=== PATIENT | male | born 1950 | race Caucasian/White ===

== ENCOUNTER 2019-07-28 13:41 | Inpatient (IN) | payer MEDICARE, OTHER ==
[~2019-07-28] VITALS: Ht 190.5 cm; Wt 113.1 kg
[~2019-07-28 13:41] MED LIST: ACYCLOVIR400 MG ORAL; ALPRAZOLAM1 MG PO; AMBIEN10 MG ORAL; AMLODIPINE BESYL5 MG ORAL; ATRIPLA TABLET1 EAC1 ORAL; BUPROPION HCL100 MG PO; CARVEDILOL25 MG PO; ENALAPRIL MALEA20 MG PO; FLOMAX0.4 MG ORAL; FUROSEMIDE40 MG ORAL; GABAPENTIN600 MG PO; HYDROCHLOROTHIA25 MG PO; IMODIUM2 MG ORAL; MARINOL5 MG ORAL; OMEPRAZOLE40 M1 PO; PAMELOR25 MG ORAL; VICODIN HP 10-1 EACH PO
[2019-07-28 13:45] VITALS: BP 132/78
--- NOTE | 2019-07-28 13:50 | NUR ---
ED Nurse Note: pt presents to ED via EMS arrival from his urgent care clinic. pt reports that he felt dizzy abouit 4 hours ago and had a syncopal episode. it was unwitnessed but he did hit his head against a window and has 2 lacs to his R ear. one is about 2.5 cm on the lober and the other is 4 cm long. pt reports a 7/10 px. he went to urgent care for lac repair but they saw a new onset of A.fib and called EMS to take him to the ED. per EMS they also saw A.fib for him. pt has h/o HTN and CA twice, he has had a partial R nephrectomy. pt reports he occasionally feels this way with his BP meds but has never been dizzy enough to fall before. pt has no other complaints at this time, VSS in no distress
--- NOTE | 2019-07-28 14:19 | NUR ---
ED Nurse Note: XRAY AT THE BEDSIDE
--- NOTE | 2019-07-28 14:35 | NUR ---
ED Nurse Note: pt has returned from CT, Dr. Chapman sent pictures of pt's ear to ENT specialist who plans to be in to see pt in about 1.5 hours
[2019-07-28] MEDS ORDERED: VENLAFAXINE HCL25 MG ORAL (14:44)
[2019-07-28] MEDS ORDERED: CRESTOR10 M2 ORAL (14:44)
[2019-07-28] MEDS ORDERED: AMLODIPINE BESY10 MG ORAL (14:44)
[2019-07-28] MEDS ORDERED: ENALAPRIL MALEA20 MG ORAL (14:44)
[2019-07-28] MEDS ORDERED: OMEPRAZOLE40 M1 ORAL (14:44)
[2019-07-28] MEDS ORDERED: FUROSEMIDE80 M1 ORAL (14:44)
[2019-07-28] MEDS ORDERED: ABILIFY5 MG ORAL (14:44)
[2019-07-28] MEDS ORDERED: TRUVADA1 TAB ORAL (14:44)
[2019-07-28 14:55] LABS: BASOPHILS % (AUTO) 0.6 % (0.0-2.0); EOSINOPHILS % (AUTO) 1.1 % (0.0-3.0); HEMATOCRIT 42.8 % (42.0-52.0); HEMOGLOBIN 14.5 G/DL (14.2-18.0); LYMPHOCYTES % (AUTO) 16.3 % (20.0-45.0); MEAN CORPUSCULAR VOLUME 87 FL (80-99); MONOCYTES % (AUTO) 6.2 % (1.0-10.0); NEUTROPHILS % (AUTO) 75.8 % (45.0-75.0); PLATELET COUNT 223 K/UL (150-450); RED BLOOD COUNT 4.92 M/UL (4.70-6.10); RED CELL DISTRIBUTION WIDTH 12.1 % (11.6-14.8); WHITE BLOOD COUNT 9.3 K/UL (4.8-10.8)
[2019-07-28 15:09] LABS: ANION GAP 12 mmol/L (5-15); BLOOD UREA NITROGEN 24 mg/dL (7-18); CALCIUM 8.9 MG/DL (8.5-10.1); CARBON DIOXIDE 26 MMOL/L (21-32); CHLORIDE 107 MMOL/L (98-107); POTASSIUM 3.4 MMOL/L (3.5-5.1); SODIUM 145 MMOL/L (136-145)
--- NOTE | 2019-07-28 15:09 | Emergency Room Report ---
History of Present Illness General Chief Complaint: Syncope Source: Patient, Medical Record Present Illness HPI 68-year-old male presents ED for evaluation. Patient states he had a syncopal episode this morning where he fell and hit his head. Laceration to the right ear. Patient drove to an urgent care where they did an EKG and saw that he was in A. fib. Brought to the ED for evaluation. Tetanus is up-to-date. Denies any pain. Denies any photophobia or blurry vision. Denies any nausea or vomiting. Denies chest pain. Does not take blood thinners. No other aggravating relieving factors. Denies any other associated symptoms Allergies: Coded Allergies: No Known Allergies (Unverified , 01/16/13) Patient History Past Medical History: HTN, pneumonia, HIV Pertinent Family History: none Social History: Denies: smoking, alcohol use, drug use Immunizations: UTD Reviewed Nursing Documentation: PMH: Agreed; PSxH: Agreed Nursing Documentation-PMH Past Medical History: No History, Except For Hx Hypertension: Yes - HIV positive History Of Psychiatric Problem: Yes - Depression Review of Systems All Other Systems: negative except mentioned in HPI Physical Exam Vital Signs Date Time Temp Pulse Resp B/P (MAP) Pulse Ox O2 Delivery O2 Flow Rate FiO2 07/28/19 13:41 98.1 72 16 132/78 (96) 99 Room Air Sp02 EP Interpretation: reviewed, normal General Appearance: no apparent distress, alert, GCS 15, non-toxic Head: normocephalic ENT: hearing grossly normal, normal pharynx, no angioedema, normal voice, other - R ear laceration Neck: normal inspection, supple, no bony tend Respiratory: normal inspection Cardiovascular #1: normal inspection Gastrointestinal: normal inspection Rectal: deferred Genitourinary: no CVA tenderness Musculoskeletal: normal inspection Neurologic: alert, oriented x3, responsive, motor strength/tone normal, sensory intact, speech normal Psychiatric: normal inspection Skin: laceration - 2cm laceration to R ear lobe, also to tragus Lymphatic: normal inspection Medical Decision Making Diagnostic Impression: Primary Impression: Syncope Qualified Codes: R55 - Syncope and collapse Additional Impressions: Head injury Qualified Codes: S09.90XA - Unspecified injury of head, initial encounter Laceration of ear Qualified Codes: S01.311A - Laceration without foreign body of right ear, initial encounter Atrial fibrillation Qualified Codes: I48.91 - Unspecified atrial fibrillation Renal insufficiency ER Course Hospital Course 68 yo M presents to ED s/p syncope. head injury. ear laceration. Differential diagnoses include: ID/unstable angina, arrythmia, dehydration, CVA/ TIA Clinical course Patient placed on stretcher. 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 After initial history and physical I ordered labs, EKG, chest x-ray, IVFs, CT Brain labs reviewed- no leukocytosis, hemoglobin/hematocrit ok, BUN/Cr elevated, trop negative EKG- afib, no acute ischemic changes interpreted by me Chest x-ray- no acute process CT brain-unremarkable given IVFS. laceration repaired by Dr Lee Locke (ENT) Case discussed with Dr. Borrego and he agreed to accept the patient to his service for further care and support I. I feel this is a highly complex case requiring extensive working including EKG/Rhythm strip, Xray/CT/US, Blood/urine lab work, repeat exams while in ED, and administration of strong opiates/narcotics for pain control, admission to hospital or close patient follow up. Diagnosis - syncope, head injury, laceration of ear, atrial fibrillation, renal insufficiency admitted to telemetry in serious condition Labs Test 07/28/19 14:00 07/28/19 15:04 White Blood Count 9.3 K/UL (4.8-10.8) Red Blood Count 4.92 M/UL (4.70-6.10) Hemoglobin 14.5 G/DL (14.2-18.0) Hematocrit 42.8 % (42.0-52.0) Mean Corpuscular Volume 87 FL (80-99) Mean Corpuscular Hemoglobin 29.5 PG (27.0-31.0) Mean Corpuscular Hemoglobin Concent 34.0 G/DL (32.0-36.0) Red Cell Distribution Width 12.1 % (11.6-14.8) Platelet Count 223 K/UL (150-450) Mean Platelet Volume 6.6 FL (6.5-10.1) Neutrophils (%) (Auto) 75.8 % (45.0-75.0) Lymphocytes (%) (Auto) 16.3 % (20.0-45.0) Monocytes (%) (Auto) 6.2 % (1.0-10.0) Eosinophils (%) (Auto) 1.1 % (0.0-3.0) Basophils (%) (Auto) 0.6 % (0.0-2.0) Sodium Level 145 MMOL/L (136-145) Potassium Level 3.4 MMOL/L (3.5-5.1) Chloride Level 107 MMOL/L (98-107) Carbon Dioxide Level 26 MMOL/L (21-32) Anion Gap 12 mmol/L (5-15) Blood Urea Nitrogen 24 mg/dL (7-18) Creatinine 2.0 MG/DL (0.55-1.30) Estimat Glomerular Filtration Rate 33.4 mL/min (>60) Glucose Level 102 MG/DL (74-106) Calcium Level 8.9 MG/DL (8.5-10.1) Total Bilirubin 0.5 MG/DL (0.2-1.0) Aspartate Amino Transf (AST/SGOT) 23 U/L (15-37) Alanine Aminotransferase (ALT/SGPT) 58 U/L (12-78) Alkaline Phosphatase 101 U/L (46-116) Total Creatine Kinase 122 U/L (26-308) Creatine Kinase MB 1.0 NG/ML (0.0-3.6) Creatine Kinase MB Relative Index 0.8 Troponin I 0.000 ng/mL (0.000-0.056) Pro-B-Type Natriuretic Peptide 829 pg/mL (0-125) Total Protein 7.3 G/DL (6.4-8.2) Albumin 3.6 G/DL (3.4-5.0) Globulin 3.7 g/dL Albumin/Globulin Ratio 1.0 (1.0-2.7) Urine Color Pale yellow Urine Appearance Clear Urine pH 7 (4.5-8.0) Urine Specific [place] 1.010 (1.005-1.035) Urine Protein Negative (NEGATIVE) Urine Glucose (UA) Negative (NEGATIVE) Urine Ketones Negative (NEGATIVE) Urine Blood Negative (NEGATIVE) Urine Nitrite Negative (NEGATIVE) Urine Bilirubin Negative (NEGATIVE) Urine Urobilinogen Normal MG/DL (0.0-1.0) Urine Leukocyte Esterase Negative (NEGATIVE) EKG Diagnostic Results Rate: normal Rhythm: other - atrial fibrillation ST Segments: no acute changes ASA given to the pt in ED: No Rhythm Strip Diag. Results EP Interpretation: yes Rhythm: NSR, no PVC's, no ectopy Chest X-Ray Diagnostic Results Chest X-Ray Diagnostic Results : Chest X-Ray Ordered: Yes # of Views/Limited/Complete: 1 View Indication: Other - syncope EP Interpretation: Yes Interpretation: no consolidation, no effusion, no pneumothorax, no acute cardiopulmonary disease Impression: No acute disease Electronically Signed by: Electronically signed by Bjorn Benitez MD CT/MRI/US Diagnostic Results CT/MRI/US Diagnostic Results : Imaging Test Ordered: CT head Impression no acute process Last Vital Signs Date Time Temp Pulse Resp B/P (MAP) Pulse Ox O2 Delivery O2 Flow Rate FiO2 07/28/19 13:45 98.1 16 132/78 99 Room Air 07/28/19 13:41 72 Status: improved Disposition: ADMITTED INPATIENT Condition: Serious Bjorn Benitez MD Jul 28, 2019 15:09
[2019-07-28] MEDS: Lidocaine 1% 10mg/ml/EPI 0.01mg/ml 20ml INJ ONE ×2 (15:13→15:22)
[2019-07-28 15:16] LABS: APPEARANCE,URINE CLEAR; BILIRUBIN, URINE NEGATIVE (NEGATIVE); COLOR,URINE PALE YELLOW; GLUCOSE, URINE (UA) NEGATIVE (NEGATIVE); KETONES,URINE NEGATIVE (NEGATIVE); LEUKOCYTE ESTERASE ,URINE NEGATIVE (NEGATIVE); NITRITE,URINE NEGATIVE (NEGATIVE); PH,URINE 7 (4.5-8.0); PROTEIN,URINE NEGATIVE (NEGATIVE); UROBILINOGEN,URINE NORMAL MG/DL (0.0-1.0)
[2019-07-28 15:25] LABS: ALANINE AMINOTRANSFERASE 58 U/L (12-78); ALBUMIN 3.6 G/DL (3.4-5.0); ALKALINE PHOSPHATASE 101 U/L (46-116); ASPARTATE AMINO TRANSFERASE 23 U/L (15-37); BILIRUBIN,TOTAL 0.5 MG/DL (0.2-1.0); CREATINE KINASE 122 U/L (26-308)
[2019-07-28 15:36] VITALS: BP 126/89
--- NOTE | 2019-07-28 16:10 | NUR ---
ED Nurse Note: Dr. Locke performed laceration repair of R ear for patient. consent was signed,pt tolerated procedure well. in no acute distress and stable condition.
[2019-07-28] MEDS ORDERED: Bacitracin Oint UD TOPIC ONE ×2 (16:43→16:45)
[2019-07-28] MEDS ORDERED: Hydrogen Peroxide 473ml Bottle TOPIC ONE ×2 (16:43→16:45)
[2019-07-28] MEDS ORDERED: Ciprofloxacin 500mg tab ORAL ONE (17:15)
[2019-07-28] MEDS ORDERED: Cortisporin OTIC Susp 10ml RIGHT EAR ONE (17:15)
--- NOTE | 2019-07-28 17:43 | Consultation ---
History of Present Illness General Date patient seen: Jul 28, 2019 Time patient seen: 16:00 Chief Complaint: Syncope Referring physician: Elmo Present Illness HPI Patient is a 68 year old male who stated two days ago began feeling some fullness and hearing loss in his left ear. He got out of his bed today and states he fell heavy on the right and fell on his right side. He denies loss of consciousness. He denies room spinning or vertigo like symptoms. No preceding tinnitus, otorrhea, prior ear surgery or otalgia. He is noted to have a significant laceration to the right ear. Bleeding has stopped . Allergies: Coded Allergies: No Known Allergies (Unverified , 01/16/13) Medication History Scheduled Acyclovir* (Acyclovir*), 800 MG ORAL TID, (Reported) Alprazolam* (Xanax*), 1 MG PO TID, (Reported) Amlodipine Besylate* (Amlodipine Besylate*), 5 MG ORAL BID, (Reported) Amlodipine Besylate* (Amlodipine Besylate*), 10 MG ORAL DAILY, (Reported) Aripiprazole* (Abilify*), 5 MG ORAL DAILY, (Reported) Bupropion Hcl* (Bupropion Hcl*), 150 MG PO TID, (Reported) Carvedilol* (Carvedilol*), 25 MG PO Q12HR, (Reported) Dronabinol* (Marinol*), 10 MG ORAL TID, (Reported) Efavirenz/Emtricitab/Tenofovir (Atripla), 1 TAB ORAL DAILY, (Reported) Emtricitabine/Tenofovir (Truvada 200 mg-300 mg Tablet), 1 TAB ORAL DAILY, ( Reported) Enalapril Maleate* (Enalapril Maleate*), 20 MG PO Q12HR, (Reported) Enalapril Maleate* (Enalapril Maleate*), 20 MG ORAL EVERY 12 HOURS, (Reported) Furosemide* (Lasix*), 40 MG ORAL DAILY, (Reported) Furosemide* (Lasix*), 80 MG ORAL DAILY, (Reported) Gabapentin* (Gabapentin*), 1,200 MG PO HS, (Reported) Hydrochlorothiazide* (Hydrochlorothiazide*), 25 MG PO DAILY, (Reported) Hydrocodone/Acetaminophen 10-300 Mg Tablet (Vicodin Hp 10-300 Mg Tablet), 1 EACH PO BID, (Reported) Loperamide HCl (Loperamide), 2 MG ORAL TID, (Reported) Nortriptyline Hcl* (Pamelor*), 100 MG ORAL HS, (Reported) Omeprazole (Omeprazole), 40 MG PO BID, (Reported) Omeprazole (Omeprazole), 40 MG ORAL DAILY, (Reported) Rosuvastatin Calcium* (Crestor*), 5 MG ORAL DAILY, (Reported) Rosuvastatin Calcium* (Crestor*), 5 MG ORAL DAILY, (Reported) Tamsulosin HCl (Flomax), 0.4 MG ORAL DAILY, (Reported) Venlafaxine Hcl* (Effexor*), 150 MG ORAL DAILY, (Reported) Zolpidem Tartrate* (Ambien*), 20 MG ORAL BEDTIME, (Reported) Patient History History Provided By: Patient Healthcare decision maker Resuscitation status Advanced Directive on File Past Medical/Surgical History Past Medical/Surgical History: (1) Non-tobacco user (2) Current non-drinker of alcohol (3) H/O partial nephrectomy (4) Renal insufficiency (5) Atrial fibrillation (6) Laceration of ear (7) Head injury Review of Systems All Other Systems: negative except mentioned in HPI Physical Exam General Appearance: WD/WN, no apparent distress, alert Lines, tubes and drains: peripheral HEENT: normocephalic, PERRL, EOMI, pharynx normal, supple, other - right EAC with edema and discharge left EAC clear, TM intact. Right ear with through and through laceration of the lobe and a skin only laceration pretagally and in the cohncha cavum Respiratory/Chest: chest wall non-tender Cardiovascular/Chest: normal rate Last 24 Hour Vital Signs Date Time Temp Pulse Resp B/P (MAP) Pulse Ox O2 Delivery O2 Flow Rate FiO2 07/28/19 15:36 86 18 126/89 96 Room Air 07/28/19 13:45 98.1 16 132/78 99 Room Air 07/28/19 13:41 98.1 72 16 132/78 (96) 99 Room Air Laboratory Tests Test 07/28/19 14:00 07/28/19 15:04 White Blood Count 9.3 K/UL (4.8-10.8) Red Blood Count 4.92 M/UL (4.70-6.10) Hemoglobin 14.5 G/DL (14.2-18.0) Hematocrit 42.8 % (42.0-52.0) Mean Corpuscular Volume 87 FL (80-99) Mean Corpuscular Hemoglobin 29.5 PG (27.0-31.0) Mean Corpuscular Hemoglobin Concent 34.0 G/DL (32.0-36.0) Red Cell Distribution Width 12.1 % (11.6-14.8) Platelet Count 223 K/UL (150-450) Mean Platelet Volume 6.6 FL (6.5-10.1) Neutrophils (%) (Auto) 75.8 % (45.0-75.0) H Lymphocytes (%) (Auto) 16.3 % (20.0-45.0) L Monocytes (%) (Auto) 6.2 % (1.0-10.0) Eosinophils (%) (Auto) 1.1 % (0.0-3.0) Basophils (%) (Auto) 0.6 % (0.0-2.0) Sodium Level 145 MMOL/L (136-145) Potassium Level 3.4 MMOL/L (3.5-5.1) L Chloride Level 107 MMOL/L (98-107) Carbon Dioxide Level 26 MMOL/L (21-32) Anion Gap 12 mmol/L (5-15) Blood Urea Nitrogen 24 mg/dL (7-18) H Creatinine 2.0 MG/DL (0.55-1.30) H Estimat Glomerular Filtration Rate 33.4 mL/min (>60) Glucose Level 102 MG/DL (74-106) Calcium Level 8.9 MG/DL (8.5-10.1) Total Bilirubin 0.5 MG/DL (0.2-1.0) Aspartate Amino Transf (AST/SGOT) 23 U/L (15-37) Alanine Aminotransferase (ALT/SGPT) 58 U/L (12-78) Alkaline Phosphatase 101 U/L (46-116) Total Creatine Kinase 122 U/L (26-308) Creatine Kinase MB 1.0 NG/ML (0.0-3.6) Creatine Kinase MB Relative Index 0.8 Troponin I 0.000 ng/mL (0.000-0.056) Pro-B-Type Natriuretic Peptide 829 pg/mL (0-125) H Total Protein 7.3 G/DL (6.4-8.2) Albumin 3.6 G/DL (3.4-5.0) Globulin 3.7 g/dL Albumin/Globulin Ratio 1.0 (1.0-2.7) Urine Color Pale yellow Urine Appearance Clear Urine pH 7 (4.5-8.0) Urine Specific [place] 1.010 (1.005-1.035) Urine Protein Negative (NEGATIVE) Urine Glucose (UA) Negative (NEGATIVE) Urine Ketones Negative (NEGATIVE) Urine Blood Negative (NEGATIVE) Urine Nitrite Negative (NEGATIVE) Urine Bilirubin Negative (NEGATIVE) Urine Urobilinogen Normal MG/DL (0.0-1.0) Urine Leukocyte Esterase Negative (NEGATIVE) Height (Feet): 5 Height (Inches): 9.00 Weight (Pounds): 245 Assessment/Plan Problem List: (1) Otitis externa in other diseases classified elsewhere, right ear Assessment & Plan: OMG PROCEDURE NOTE Date: 07/28/2019: Surgeon: Lee Locke Preoperative diagnosis: complex laceration of the left ear Postoperative Diagnosis: same Anesthesia: local anesthesia EBL: <5cc Procedure: complex laceration repair to the right ear (5cm) Procedure in Detail: The right ear was first anesthesized ith 1% lidocaine with epinephrine. A total of 6cc was used. I then cleansed the wound with saline and chlorhexidine. Looking at the wound I noted a through and through laceration of the lobe and base of the samira. There was also a skin only laceration pretagally and in the samira cavum. I began by using a 5-0 vicryl to reapproximate the samira (inferior) portion that had been severed. A simple horizontal mattress suture was used. Next I noted macerated skin to the anterior portion of the lobe. I used fine scissors to excise skin and create a small flap with elevation and a backcut. This allowed me to rorate the anterior skin posteriorly for good closure. Next I used a running locking suture on the pretragl and conchal bowl lacerations. These measured 5cm in total. Then I placed deep sutures using a 5-0 vicryl to bring the lobule together. A running locking suture was then placed. This laceration measured 4cm in total. Finally the posterior lobule was closed iwth a running locking 6-0 prolene horizontal mattress suture. There was a small laceration posteriorly that was very superficial so I placed dermal glue over this. The ear was cleaned with peroxide and bacitracin was applied. Patient toelrated the procedure well. Prescribe ciprodex, dry ear precautions, bacitracin opintment, cipro 500mg PO BID for 7 days, and pain control. He should follow up with me on Friday for suture removal. ICD Codes: H62.41 - Otitis externa in other diseases classified elsewhere, right ear SNOMED: [id number] Status: doing well Darren Locke MD Jul 28, 2019 17:43
--- NOTE | 2019-07-28 17:43 | NUR ---
ED Nurse Note: report given to to JOSE Escobar
[2019-07-28 20:00] VITALS: BP 128/79
--- NOTE | 2019-07-28 20:00 | NUR ---
NURSE NOTES: received pt, a/o, day rn, reviewed med rec and already called the pmd and received orders, right ear sutures in place, c/o pain in ear , will give morphine once verified by pharmacy.
--- NOTE | 2019-07-28 20:18 | Diagnostic Imaging Report ---
CT HEAD WITHOUT CONTRAST INDICATION: Syncope Technique: Continuous helical CT scanning of the head was performed without intravenous contrast material. Axial and coronal 5 mm sections were generated. Radiation dose was minimized using automated exposure control DOSE: Total Dose Length Product - DLP 1394.[address] Dose Index - CTDIvol(s) 62.7 mGy. COMPARISON: FINDINGS: There is no acute intracranial hemorrhage, mass effect or cortical edema. There are patchy subcortical and periventricular white matter hypodensities likely related to chronic ischemic microvascular disease. The ventricles, cisterns and sulci are normal for age. Visualized mastoid air cells and paranasal sinuses are unremarkable. No focal lesions of the bony calvarium or soft tissues of the scalp are seen. IMPRESSION: No evidence of acute intracranial hemorrhage, mass effect or cortical edema. MRI may be obtained for more sensitive evaluation as clinically indicated. The CT scanner at [facility] [place] is accredited by the [employer] and the scans are performed using protocols designed to limit radiation exposure to as low as reasonably achievable to attain images of sufficient resolution adequate for diagnostic evaluation.
--- NOTE | 2019-07-28 20:18 | Diagnostic Imaging Report ---
Indication: Shortness of breath Technique: Single AP view of the chest. Comparison: None. Findings: The cardiomediastinal silhouette is within normal limits. There is no focal consolidation, pneumothorax or pleural effusion. Osseous structures demonstrate no acute abnormality. IMPRESSION: No radiographic evidence of acute cardiopulmonary process.
--- NOTE | 2019-07-28 20:45 | NUR ---
HAND-OFF: Report given to Alexis/RN. Endorsed to nurse to contact Dr. Liu and Michael for further orders.
[2019-07-28] MEDS: Morphine Sulfate 2mg/ml Inj(IV/IM USE ONLY) IVP PRN (20:49)
[2019-07-28] MEDS: D5 1/2NS 1,000 ML IV SCH (20:50)
[2019-07-28] MEDS: Furosemide 80mg tab ORAL SCH (21:00)
[2019-07-28] MEDS: Carvedilol 25mg Tab ORAL SCH (21:00)
--- NOTE | 2019-07-28 23:00 | NUR ---
NURSE NOTES: message left for dr ayala re consult re afib
[2019-07-29] MEDS: Morphine Sulfate 2mg/ml Inj(IV/IM USE ONLY) IVP PRN ×4 (01:03→15:16)
[2019-07-29] MEDS ORDERED: TIVICAY50 MG ORAL (01:46)
[2019-07-29] MEDS ORDERED: descovy ORAL (02:14)
--- NOTE | 2019-07-29 06:45 | NUR ---
NURSE NOTES:dr ayala called back, aware of consult. Dr Liu service called, awaiting response.
--- NOTE | 2019-07-29 07:23 | NUR ---
HAND-OFF: Report given to Kyle Parnell.
--- NOTE | 2019-07-29 07:25 | NUR ---
NURSE NOTES: Received report from JOSE Cervantes. Pt in bed awake, talkative, eating breakfast, no complaints of pain at this time, no apparent distress noted, pt is requesting to be discharged as he states he feels better, RN discussed plan of care with pt, noted laceration to left ear, pt is sp fall at home, bed in lowest position, call light within reach, bed alarm on.
[2019-07-29 08:00] VITALS: BP 131/87
--- NOTE | 2019-07-29 08:20 | NUR ---
NURSE NOTES: Received call from JOSE Cervantes. That Dr. Moody sent her an order for 2D echo and stat troponin. RN clarified with MD Moody for order for 2D echo and notified MD that troponin has already be drawn and results for today 07/29/19 were negative, asked if another was still wanted.
--- NOTE | 2019-07-29 08:43 | NUR ---
RD ASSESSMENT & RECOMMENDATIONS SEE CARE ACTIVITY FOR COMPLETE ASSESSMENT DAILY ESTIMATED NEEDS: Needs based on Renal, cardiac 95kg abw 20-25 kcals/kg 4122-8581 total kcals .8-1.2 g protein/kg 76-114 g total protein On lasix, fluid per MD NUTRITION DIAGNOSIS: Decreased sodium need r/t renal insufficiency as evidenced by elev Creat 2.0. (CURRENT DIET: Regular) PO DIET RECOMMENDATIONS-->> LOW NA DIET ADDITIONAL RECOMMENDATIONS: 1) Pt on lasix-> obtain daily standing weights 2) Monitor lytes daily on lasix (K low 3.4)
[2019-07-29 08:49] LABS: ANION GAP 8 mmol/L (5-15); BLOOD UREA NITROGEN 20 mg/dL (7-18); CALCIUM 8.6 MG/DL (8.5-10.1); CARBON DIOXIDE 29 MMOL/L (21-32); CHLORIDE 109 MMOL/L (98-107); CREATININE 1.9 MG/DL (0.55-1.30); POTASSIUM 3.7 MMOL/L (3.5-5.1); SODIUM 146 MMOL/L (136-145)
[2019-07-29 08:53] LABS: ALANINE AMINOTRANSFERASE 45 U/L (12-78); ALBUMIN 3.1 G/DL (3.4-5.0); ALBUMIN/GLOBULIN RATIO 0.9 (1.0-2.7); ALKALINE PHOSPHATASE 91 U/L (46-116); ASPARTATE AMINO TRANSFERASE 19 U/L (15-37); BILIRUBIN,TOTAL 0.4 MG/DL (0.2-1.0); PHOSPHORUS 3.3 MG/DL (2.5-4.9)
[2019-07-29] MEDS ORDERED: Loperamide 2mg cap ORAL PRN (09:00)
[2019-07-29] MEDS: Carvedilol 25mg Tab ORAL SCH ×2 (09:20→20:54)
[2019-07-29] MEDS: Venlafaxine XR 150mg cap ORAL SCH (09:20)
[2019-07-29] MEDS: Furosemide 80mg tab ORAL SCH (09:20)
--- NOTE | 2019-07-29 09:29 | NUR ---
NURSE NOTES: Spoke with Dr. Coyle regarding CA 7.8, stated he will review all labs
--- NOTE | 2019-07-29 09:47 | Cardiac Electrophysiology PN ---
Subjective Subjective Newly diagnosed atrial fib. DW Dr Brown as well. Anticoagulation when OK with ENT. [id number] Objective Last 24 Hour Vital Signs Date Time Temp Pulse Resp B/P (MAP) Pulse Ox O2 Delivery O2 Flow Rate FiO2 07/29/19 09:20 71 131/87 07/29/19 09:20 71 131/87 07/29/19 08:00 98.8 71 18 131/87 (102) 96 07/29/19 07:45 75 07/29/19 07:27 Room Air 07/29/19 05:20 98.7 07/29/19 04:00 67 07/29/19 00:20 74 07/28/19 22:04 Room Air 07/28/19 20:00 98.7 74 17 128/79 (95) 98 07/28/19 20:00 75 07/28/19 17:43 86 18 126/89 96 Room Air 07/28/19 15:36 86 18 126/89 96 Room Air 07/28/19 13:45 98.1 16 132/78 99 Room Air 07/28/19 13:41 98.1 72 16 132/78 (96) 99 Room Air Intake and Output 07/28/19 07/29/19 19:00 07:00 Intake Total 100 ml 660 ml Output Total 250 ml 600 ml Balance -150 ml 60 ml Intake Oral 100 ml 300 ml IV Total 360 ml Output Urine Total 250 ml 600 ml # Voids 4 Laboratory Tests Test 07/28/19 14:00 07/28/19 15:04 07/28/19 20:25 07/29/19 04:21 White Blood Count 9.3 K/UL (4.8-10.8) Red Blood Count 4.92 M/UL (4.70-6.10) Hemoglobin 14.5 G/DL (14.2-18.0) Hematocrit 42.8 % (42.0-52.0) Mean Corpuscular Volume 87 FL (80-99) Mean Corpuscular Hemoglobin 29.5 PG (27.0-31.0) Mean Corpuscular Hemoglobin Concent 34.0 G/DL (32.0-36.0) Red Cell Distribution Width 12.1 % (11.6-14.8) Platelet Count 223 K/UL (150-450) Mean Platelet Volume 6.6 FL (6.5-10.1) Neutrophils (%) (Auto) 75.8 % (45.0-75.0) H Lymphocytes (%) (Auto) 16.3 % (20.0-45.0) L Monocytes (%) (Auto) 6.2 % (1.0-10.0) Eosinophils (%) (Auto) 1.1 % (0.0-3.0) Basophils (%) (Auto) 0.6 % (0.0-2.0) Sodium Level 145 MMOL/L (136-145) 146 MMOL/L (136-145) H Potassium Level 3.4 MMOL/L (3.5-5.1) L 3.7 MMOL/L (3.5-5.1) Chloride Level 107 MMOL/L (98-107) 109 MMOL/L (98-107) H Carbon Dioxide Level 26 MMOL/L (21-32) 29 MMOL/L (21-32) Anion Gap 12 mmol/L (5-15) 8 mmol/L (5-15) Blood Urea Nitrogen 24 mg/dL (7-18) H 20 mg/dL (7-18) H Creatinine 2.0 MG/DL (0.55-1.30) H 1.9 MG/DL (0.55-1.30) H Estimat Glomerular Filtration Rate 33.4 mL/min (>60) 35.4 mL/min (>60) Glucose Level 102 MG/DL (74-106) 113 MG/DL (74-106) H Calcium Level 8.9 MG/DL (8.5-10.1) 8.6 MG/DL (8.5-10.1) Total Bilirubin 0.5 MG/DL (0.2-1.0) 0.4 MG/DL (0.2-1.0) Aspartate Amino Transf (AST/SGOT) 23 U/L (15-37) 19 U/L (15-37) Alanine Aminotransferase (ALT/SGPT) 58 U/L (12-78) 45 U/L (12-78) Alkaline Phosphatase 101 U/L (46-116) 91 U/L (46-116) Total Creatine Kinase 122 U/L (26-308) Creatine Kinase MB 1.0 NG/ML (0.0-3.6) Creatine Kinase MB Relative Index 0.8 Troponin I 0.000 ng/mL (0.000-0.056) 0.004 ng/mL (0.000-0.056) 0.000 ng/mL (0.000-0.056) Pro-B-Type Natriuretic Peptide 829 pg/mL (0-125) H Total Protein 7.3 G/DL (6.4-8.2) 6.5 G/DL (6.4-8.2) Albumin 3.6 G/DL (3.4-5.0) 3.1 G/DL (3.4-5.0) L Globulin 3.7 g/dL 3.4 g/dL Albumin/Globulin Ratio 1.0 (1.0-2.7) 0.9 (1.0-2.7) L Urine Color Pale yellow Urine Appearance Clear Urine pH 7 (4.5-8.0) Urine Specific [place] 1.010 (1.005-1.035) Urine Protein Negative (NEGATIVE) Urine Glucose (UA) Negative (NEGATIVE) Urine Ketones Negative (NEGATIVE) Urine Blood Negative (NEGATIVE) Urine Nitrite Negative (NEGATIVE) Urine Bilirubin Negative (NEGATIVE) Urine Urobilinogen Normal MG/DL (0.0-1.0) Urine Leukocyte Esterase Negative (NEGATIVE) Uric Acid 7.8 MG/DL (2.6-7.2) H Phosphorus Level 3.3 MG/DL (2.5-4.9) Magnesium Level 2.0 MG/DL (1.8-2.4) Miguel Angel Moura MD Jul 29, 2019 09:47
[2019-07-29] MEDS ORDERED: Flu Vac High-Dose for Pts 65 Years and Older IM ONE (10:00)
--- NOTE | 2019-07-29 10:08 | NUR ---
*-* INSURANCE *-* ALL AVAILABLE CLINICALS HAVE BEEN FAXED TO: [facility] NCM: DEVAN Leos; [phone] F: [phone]
--- NOTE | 2019-07-29 10:15 | NUR ---
P.T Note: P.T evaluation completed and tx initiated. Please refer to P.T evaluation for current functional status and POC. Pt is alert, O x 4 , pleasant and cooperative. Pt reports sever pain on the R temporal lobe 8-07/15 and slight dizziness affecting overall functional mobility mobility performance. Pt is independent with bed mobilities, SBA X 1 with Transfer and CGA/hand in hand assist with gait/ambulation due to unsteady gait. Pt will benefit from skilled P.T service to improve his strength and balance to improve mobility independence and to return to [facility]. Recommend [facility] and Home P.T for safety follow up. Thank you for this referral. Addendum: 07/29/19 at 1030 by DA BLANCHARD PT Note correction: Pt c/o pain on the R ear lobe NOT temporal lobe. Thank you.
--- NOTE | 2019-07-29 10:46 | NUR ---
NURSE NOTES: Notified Dr. Chen (covering Noe) that pt received Cipro 500mg PO and ear drops yesterday in ED and nothing has been ordered for him today.
--- NOTE | 2019-07-29 11:20 | Consultation ---
History of Present Illness General Date patient seen: Jul 29, 2019 Chief Complaint: Syncope Referring physician: Elmo Present Illness HPI 68 y/o M with hx of HTN, pneumonia, HIV, MDD presents to ED on 07/28 with syncopal episode with resultant R ear laceration. Patient went to urgent care first and was found to be on Afib and was brought to ED for evaluation. 2 days prior to admission, he complained of fullness and hearing in his left ear. Day fo admission when he got out of his bed he felt heavy on the right and fell to right side. Denied loss of consciousness. Denied pain, photophobia, blurry vision, n/v, chest pain, vertigo like symptoms , tinnitus, otorrhea. Allergies: Coded Allergies: No Known Allergies (Unverified , 01/16/13) Medication History Scheduled Acyclovir* (Acyclovir*), 800 MG ORAL TID, (Reported) Alprazolam* (Xanax*), 1 MG PO TID, (Reported) Amlodipine Besylate* (Amlodipine Besylate*), 5 MG ORAL BID, (Reported) Amlodipine Besylate* (Amlodipine Besylate*), 10 MG ORAL DAILY, (Reported) Aripiprazole* (Abilify*), 5 MG ORAL DAILY, (Reported) Bupropion Hcl* (Bupropion Hcl*), 150 MG PO TID, (Reported) Carvedilol* (Carvedilol*), 25 MG PO Q12HR, (Reported) Dolutegravir Sodium (Tivicay), 50 MG ORAL DAILY, (Reported) Dronabinol* (Marinol*), 10 MG ORAL TID, (Reported) Efavirenz/Emtricitab/Tenofovir (Atripla), 1 TAB ORAL DAILY, (Reported) Emtricitabine/Tenofovir (Truvada 200 mg-300 mg Tablet), 1 TAB ORAL DAILY, ( Reported) Enalapril Maleate* (Enalapril Maleate*), 20 MG PO Q12HR, (Reported) Enalapril Maleate* (Enalapril Maleate*), 20 MG ORAL EVERY 12 HOURS, (Reported) Furosemide* (Lasix*), 40 MG ORAL DAILY, (Reported) Furosemide* (Lasix*), 80 MG ORAL DAILY, (Reported) Gabapentin* (Gabapentin*), 1,200 MG PO HS, (Reported) Hydrochlorothiazide* (Hydrochlorothiazide*), 25 MG PO DAILY, (Reported) Hydrocodone/Acetaminophen 10-300 Mg Tablet (Vicodin Hp 10-300 Mg Tablet), 1 EACH PO BID, (Reported) Loperamide HCl (Loperamide), 2 MG ORAL TID, (Reported) Nortriptyline Hcl* (Pamelor*), 100 MG ORAL HS, (Reported) Omeprazole (Omeprazole), 40 MG PO BID, (Reported) Omeprazole (Omeprazole), 40 MG ORAL DAILY, (Reported) Rosuvastatin Calcium* (Crestor*), 5 MG ORAL DAILY, (Reported) Rosuvastatin Calcium* (Crestor*), 5 MG ORAL DAILY, (Reported) Tamsulosin HCl (Flomax), 0.4 MG ORAL DAILY, (Reported) Venlafaxine Hcl* (Effexor*), 150 MG ORAL DAILY, (Reported) Zolpidem Tartrate* (Ambien*), 20 MG ORAL BEDTIME, (Reported) [descovy], Unknown Dose ORAL HS, (Reported) Patient History Healthcare decision maker Resuscitation status Full Code Advanced Directive on File No Patient History Narrative Pmhx: as above Shx: Denies: smoking, alcohol use, drug use Fhx: non contributory Physical Exam Physical Exam Narrative General Appearance: no apparent distress, alert Head: normocephalic ENT: hearing grossly normal, normal pharynx, no angioedema, normal voice, other - R ear laceration Neck: normal inspection, supple, no bony tend Respiratory: normal inspection Cardiovascular #1: normal inspection Gastrointestinal: normal inspection Genitourinary: no CVA tenderness Musculoskeletal: normal inspection Neurologic: alert, oriented x3, responsive, motor strength/tone normal, sensory intact, speech normal Skin: laceration -R ear lobe with sutures in place- Last 24 Hour Vital Signs Date Time Temp Pulse Resp B/P (MAP) Pulse Ox O2 Delivery O2 Flow Rate FiO2 07/29/19 09:52 98.8 07/29/19 09:20 71 131/87 07/29/19 09:20 71 131/87 07/29/19 08:00 98.8 71 18 131/87 (102) 96 07/29/19 07:45 75 07/29/19 07:27 Room Air 07/29/19 04:00 67 07/29/19 00:20 74 07/28/19 22:04 Room Air 07/28/19 20:00 98.7 74 17 128/79 (95) 98 07/28/19 20:00 75 07/28/19 17:43 86 18 126/89 96 Room Air 07/28/19 15:36 86 18 126/89 96 Room Air 07/28/19 13:45 98.1 16 132/78 99 Room Air 07/28/19 13:41 98.1 72 16 132/78 (96) 99 Room Air Intake and Output 07/28/19 07/29/19 19:00 07:00 Intake Total 100 ml 660 ml Output Total 250 ml 600 ml Balance -150 ml 60 ml Intake Oral 100 ml 300 ml IV Total 360 ml Output Urine Total 250 ml 600 ml # Voids 4 Laboratory Tests Test 07/28/19 14:00 07/28/19 15:04 07/28/19 20:25 07/29/19 04:21 White Blood Count 9.3 K/UL (4.8-10.8) Red Blood Count 4.92 M/UL (4.70-6.10) Hemoglobin 14.5 G/DL (14.2-18.0) Hematocrit 42.8 % (42.0-52.0) Mean Corpuscular Volume 87 FL (80-99) Mean Corpuscular Hemoglobin 29.5 PG (27.0-31.0) Mean Corpuscular Hemoglobin Concent 34.0 G/DL (32.0-36.0) Red Cell Distribution Width 12.1 % (11.6-14.8) Platelet Count 223 K/UL (150-450) Mean Platelet Volume 6.6 FL (6.5-10.1) Neutrophils (%) (Auto) 75.8 % (45.0-75.0) H Lymphocytes (%) (Auto) 16.3 % (20.0-45.0) L Monocytes (%) (Auto) 6.2 % (1.0-10.0) Eosinophils (%) (Auto) 1.1 % (0.0-3.0) Basophils (%) (Auto) 0.6 % (0.0-2.0) Sodium Level 145 MMOL/L (136-145) 146 MMOL/L (136-145) H Potassium Level 3.4 MMOL/L (3.5-5.1) L 3.7 MMOL/L (3.5-5.1) Chloride Level 107 MMOL/L (98-107) 109 MMOL/L (98-107) H Carbon Dioxide Level 26 MMOL/L (21-32) 29 MMOL/L (21-32) Anion Gap 12 mmol/L (5-15) 8 mmol/L (5-15) Blood Urea Nitrogen 24 mg/dL (7-18) H 20 mg/dL (7-18) H Creatinine 2.0 MG/DL (0.55-1.30) H 1.9 MG/DL (0.55-1.30) H Estimat Glomerular Filtration Rate 33.4 mL/min (>60) 35.4 mL/min (>60) Glucose Level 102 MG/DL (74-106) 113 MG/DL (74-106) H Calcium Level 8.9 MG/DL (8.5-10.1) 8.6 MG/DL (8.5-10.1) Total Bilirubin 0.5 MG/DL (0.2-1.0) 0.4 MG/DL (0.2-1.0) Aspartate Amino Transf (AST/SGOT) 23 U/L (15-37) 19 U/L (15-37) Alanine Aminotransferase (ALT/SGPT) 58 U/L (12-78) 45 U/L (12-78) Alkaline Phosphatase 101 U/L (46-116) 91 U/L (46-116) Total Creatine Kinase 122 U/L (26-308) Creatine Kinase MB 1.0 NG/ML (0.0-3.6) Creatine Kinase MB Relative Index 0.8 Troponin I 0.000 ng/mL (0.000-0.056) 0.004 ng/mL (0.000-0.056) 0.000 ng/mL (0.000-0.056) Pro-B-Type Natriuretic Peptide 829 pg/mL (0-125) H Total Protein 7.3 G/DL (6.4-8.2) 6.5 G/DL (6.4-8.2) Albumin 3.6 G/DL (3.4-5.0) 3.1 G/DL (3.4-5.0) L Globulin 3.7 g/dL 3.4 g/dL Albumin/Globulin Ratio 1.0 (1.0-2.7) 0.9 (1.0-2.7) L Urine Color Pale yellow Urine Appearance Clear Urine pH 7 (4.5-8.0) Urine Specific Hubbard 1.010 (1.005-1.035) Urine Protein Negative (NEGATIVE) Urine Glucose (UA) Negative (NEGATIVE) Urine Ketones Negative (NEGATIVE) Urine Blood Negative (NEGATIVE) Urine Nitrite Negative (NEGATIVE) Urine Bilirubin Negative (NEGATIVE) Urine Urobilinogen Normal MG/DL (0.0-1.0) Urine Leukocyte Esterase Negative (NEGATIVE) Uric Acid 7.8 MG/DL (2.6-7.2) H Phosphorus Level 3.3 MG/DL (2.5-4.9) Magnesium Level 2.0 MG/DL (1.8-2.4) Test 07/29/19 09:00 Troponin I 0.006 ng/mL (0.000-0.056) Thyroid Stimulating Hormone (TSH) Pending Free Thyroxine Pending Free Triiodothyronine Pending Height (Feet): 6 Height (Inches): 3.00 Weight (Pounds): 249 Medications Current Medications Medications (Trade) Dose Ordered Sig/Bev Route PRN Reason Start Time Stop Time Status Last Admin Dose Admin Amlodipine Besylate (Norvasc) 5 mg Q12HR ORAL 07/29/19 09:00 08/28/19 08:59 07/29/19 09:20 Aripiprazole (Abilify) 5 mg DAILY ORAL 07/29/19 09:00 08/28/19 08:59 Carvedilol (Coreg) 25 mg Q12HR ORAL 07/28/19 21:00 08/27/19 20:59 07/29/19 09:20 Dextrose/Sodium Chloride 1,000 ml @ 60 mls/hr [id number] IV 07/28/19 20:00 08/27/19 19:59 07/28/19 20:50 Furosemide (Lasix) 80 mg DAILY ORAL 07/28/19 21:00 08/27/19 20:59 07/29/19 09:20 Loperamide HCl (Imodium) 2 mg Q8H PRN ORAL diarrhea 07/29/19 09:00 08/28/19 08:59 Morphine Sulfate (Morphine Sulfate) 2 mg Q4H PRN IVP PAIN 4-10 07/28/19 20:00 08/04/19 19:59 07/29/19 09:22 Venlafaxine HCl (Effexor-XR) 150 mg DAILY ORAL 07/29/19 09:00 08/28/19 08:59 07/29/19 09:20 Assessment/Plan Assessment/Plan: Abx: Cipro x1 07/28 Assessment: R ear laceration c/w otitis externa -07/28 SP Complex laceration repair by ENT Syncopal episode -CT head: No evidence of acute intracranial hemorrhage, mass effect or cortical edema. MRI may be obtained for more sensitive evaluation as clinically indicated. New onset Afib Afebrile No leukocytosis -CXR: no acute process HTN hx of pneumonia HIV MDD Plan: -Continue PO Ciprofloxacin #2/7 and ear drops per ENT (ciprodex vs cortisporin) -f/u cx -Monitor CBC/CMP, temperatures -ENT f/u -wound care per hospital protocol -Cards eval -Clarify ARV regimen if taking Thank you for this consultation. Will continue to follow along with you. Discussed with Sonja Gong M.D. Jul 29, 2019 11:20
[2019-07-29] MEDS ORDERED: Cortisporin OTIC Susp 10ml RIGHT EAR ONE (11:30)
[2019-07-29] MEDS ORDERED: Bacitracin Oint UD TOPIC ONE (11:30)
[2019-07-29] MEDS: Ciprofloxacin 500mg tab ORAL SCH ×2 (11:39→20:54)
[2019-07-29] MEDS: D5 1/2NS 1,000 ML IV SCH (11:39)
[2019-07-29] MEDS: Bacitracin Oint UD TOPIC SCH ×2 (11:45→17:17)
[2019-07-29 12:00] VITALS: BP 124/79
--- NOTE | 2019-07-29 14:17 | Consultation ---
Consult Note Assessment/Plan dictated #[id number] Collins Burr MD Jul 29, 2019 14:17
--- NOTE | 2019-07-29 14:49 | NUR ---
CASE MANAGEMENT: INITIAL REVIEW 68YR OLD MALE BIBA FROM URGENT CARE CC: SYNCOPE SI: SYNCOPE; HEAD INJURY; CONTROLLED AFIB 98.0 72 16 132/78 99% ON RA BUN 24; CREA 2.0; K+ 3.4; BNP 829 IS: IV NS BOLUS X1 LIDOCAINE INJ X1 CIPRO PO X1 : 2E TELE UNIT CASE MANAGEMENT: REVIEW 07/29/19 SI: SYNCOPE; HEAD INJURY; AFIB 98.2 70 20 124/79 96% ON RA BUN 24; CREA 2.0; K+ 3.4; BNP 829 IS: DEXTROSE/NS @60HR CIPRO PO Q12HR LASIX PO QD NORVASC PO Q12HR COREG PO Q12HR IV MORPHINE SULFATE Q4/PRN EFFEXOR PO QD : 2E TELE UNIT PLAN: MRI
--- NOTE | 2019-07-29 15:22 | NUR ---
NURSE NOTES: Pt's friend brought pt's HIV medications in a plastic bag, not in prescription bottles. RN notified Dr. Chen of which HIV meds were brought and that no labeled bottle is with them. Dr. Chen stated okay to continue HIV meds, pt is planning to be discharged tomorrow.
[2019-07-29 16:00] VITALS: BP 127/81
[2019-07-29] MEDS: Cortisporin OTIC Susp 10ml RIGHT EAR SCH (17:17)
[2019-07-29] MEDS ORDERED: HYDROCODON-ACE1 EA13 ORAL (18:19)
--- NOTE | 2019-07-29 19:57 | NUR ---
HAND-OFF: Report given to JOSE Saleh. Endorsed plan of care.
[2019-07-29 20:00] VITALS: BP 127/86
--- NOTE | 2019-07-29 20:00 | NUR ---
NURSE NOTES: Got report from Sammi GARCIA. Pt in stable condition. Denies any pain. No s/s of distress or discomfort noted. Pt resting in bed comfortably. Bed in low and locked position, call light within reach bedside table within reach. Continue to monitor.
--- NOTE | 2019-07-29 20:51 | Cardiology Progress Note ---
Assessment/Plan Assessment/Plan [id number] Objective Last 24 Hour Vital Signs Date Time Temp Pulse Resp B/P (MAP) Pulse Ox O2 Delivery O2 Flow Rate FiO2 07/29/19 16:06 70 07/29/19 16:00 97.9 62 18 127/81 (96) 97 07/29/19 15:46 98.2 07/29/19 12:00 98.2 70 20 124/79 (94) 96 07/29/19 11:51 66 07/29/19 09:20 71 131/87 07/29/19 09:20 71 131/87 07/29/19 08:00 98.8 71 18 131/87 (102) 96 07/29/19 07:45 75 07/29/19 07:27 Room Air 07/29/19 04:00 67 07/29/19 00:20 74 07/28/19 22:04 Room Air Intake and Output 07/28/19 07/29/19 19:00 07:00 Intake Total 100 ml 660 ml Output Total 250 ml 600 ml Balance -150 ml 60 ml Intake Oral 100 ml 300 ml IV Total 360 ml Output Urine Total 250 ml 600 ml # Voids 4 Laboratory Tests Test 07/29/19 04:21 07/29/19 09:00 Sodium Level 146 MMOL/L (136-145) H Potassium Level 3.7 MMOL/L (3.5-5.1) Chloride Level 109 MMOL/L (98-107) H Carbon Dioxide Level 29 MMOL/L (21-32) Anion Gap 8 mmol/L (5-15) Blood Urea Nitrogen 20 mg/dL (7-18) H Creatinine 1.9 MG/DL (0.55-1.30) H Estimat Glomerular Filtration Rate 35.4 mL/min (>60) Glucose Level 113 MG/DL (74-106) H Uric Acid 7.8 MG/DL (2.6-7.2) H Calcium Level 8.6 MG/DL (8.5-10.1) Phosphorus Level 3.3 MG/DL (2.5-4.9) Magnesium Level 2.0 MG/DL (1.8-2.4) Total Bilirubin 0.4 MG/DL (0.2-1.0) Aspartate Amino Transf (AST/SGOT) 19 U/L (15-37) Alanine Aminotransferase (ALT/SGPT) 45 U/L (12-78) Alkaline Phosphatase 91 U/L (46-116) Troponin I 0.000 ng/mL (0.000-0.056) 0.006 ng/mL (0.000-0.056) Total Protein 6.5 G/DL (6.4-8.2) Albumin 3.1 G/DL (3.4-5.0) L Globulin 3.4 g/dL Albumin/Globulin Ratio 0.9 (1.0-2.7) L Thyroid Stimulating Hormone (TSH) 3.469 uiU/mL (0.358-3.740) Free Thyroxine 1.04 NG/DL (0.76-1.46) Free Triiodothyronine 3.3 pg/mL (2.3-4.2) Everett Brown MD Jul 29, 2019 20:51
[2019-07-30] MEDS: D5 1/2NS 1,000 ML IV SCH (05:20)
--- NOTE | 2019-07-30 06:52 | NUR ---
HAND-OFF: Report given to Sammi GARCIA. Endorsed plan of care.
--- NOTE | 2019-07-30 06:53 | NUR ---
NURSE NOTES: Received report from JOSE Saleh. Pt in bed, awake, talkative, no complaints of pain, no apparent distress noted, bed in lowest position, call light within reach, discussed plan of care, pt is hopeful for discharge today, RN will talk to primary MD for DC plan.
[2019-07-30 07:38] LABS: BASOPHILS % (AUTO) 0.8 % (0.0-2.0); EOSINOPHILS % (AUTO) 2.1 % (0.0-3.0); HEMATOCRIT 41.3 % (42.0-52.0); HEMOGLOBIN 13.8 G/DL (14.2-18.0); LYMPHOCYTES % (AUTO) 23.3 % (20.0-45.0); MEAN CORPUSCULAR VOLUME 88 FL (80-99); MONOCYTES % (AUTO) 7.7 % (1.0-10.0); NEUTROPHILS % (AUTO) 66.1 % (45.0-75.0); PLATELET COUNT 212 K/UL (150-450); RED BLOOD COUNT 4.69 M/UL (4.70-6.10); RED CELL DISTRIBUTION WIDTH 12.1 % (11.6-14.8); WHITE BLOOD COUNT 7.5 K/UL (4.8-10.8)
[2019-07-30 07:44] LABS: ANION GAP 8 mmol/L (5-15); BLOOD UREA NITROGEN 18 mg/dL (7-18); CALCIUM 8.7 MG/DL (8.5-10.1); CARBON DIOXIDE 29 MMOL/L (21-32); CHLORIDE 108 MMOL/L (98-107); CREATININE 1.8 MG/DL (0.55-1.30); POTASSIUM 3.3 MMOL/L (3.5-5.1); SODIUM 145 MMOL/L (136-145)
--- NOTE | 2019-07-30 07:52 | NUR ---
NURSE NOTES: Notified Dr. Elmo Chapman 3.3 today, asked about replacement
--- NOTE | 2019-07-30 08:43 | General Progress Note ---
Assessment/Plan Problem List: (1) Renal insufficiency ICD Codes: N28.9 - Disorder of kidney and ureter, unspecified SNOMED: 340539792, 863285939 (2) Atrial fibrillation ICD Codes: I48.91 - Unspecified atrial fibrillation SNOMED: 04504378 Qualifiers: Qualified Codes: I48.91 - Unspecified atrial fibrillation (3) Laceration of ear ICD Codes: S01.319A - Laceration without foreign body of unspecified ear, initial encounter SNOMED: 69888439, 197749036 Qualifiers: Qualified Codes: S01.311A - Laceration without foreign body of right ear, initial encounter (4) Syncope ICD Codes: R55 - Syncope and collapse SNOMED: 045430877 Qualifiers: Qualified Codes: R55 - Syncope and collapse (5) Head injury ICD Codes: S09.90XA - Unspecified injury of head, initial encounter SNOMED: 98264516 Qualifiers: Qualified Codes: S09.90XA - Unspecified injury of head, initial encounter Status: stable, progressing Assessment/Plan: pt diet abx cbc bmp am dc plan if clear by cardio Subjective Constitutional: Reports: weakness Allergies: Coded Allergies: No Known Allergies (Unverified , 01/16/13) All Systems: reviewed and negative except above Subjective calm in bed Objective Last 24 Hour Vital Signs Date Time Temp Pulse Resp B/P (MAP) Pulse Ox O2 Delivery O2 Flow Rate FiO2 07/30/19 08:15 Room Air 07/30/19 04:00 57 07/30/19 00:00 52 07/29/19 21:00 Room Air 07/29/19 20:55 61 127/86 07/29/19 20:54 61 127/86 07/29/19 20:00 99.0 61 18 127/86 (100) 96 07/29/19 20:00 61 07/29/19 16:06 70 07/29/19 16:00 97.9 62 18 127/81 (96) 97 07/29/19 15:46 98.2 07/29/19 12:00 98.2 70 20 124/79 (94) 96 07/29/19 11:51 66 07/29/19 09:20 71 131/87 07/29/19 09:20 71 131/87 Intake and Output 07/29/19 07/30/19 19:00 07:00 Intake Total 600 ml Output Total 1150 ml 800 ml Balance -550 ml -800 ml Intake Oral 600 ml Output Urine Total 1150 ml 800 ml # Voids 7 Laboratory Tests 07/29/19 09:00: Troponin I 0.006, Thyroid Stimulating Hormone (TSH) 3.469, Free Thyroxine 1.04, Free Triiodothyronine 3.3 07/30/19 05:27: White Blood Count 7.5, Red Blood Count 4.69L, Hemoglobin 13.8L, Hematocrit 41.3L , Mean Corpuscular Volume 88, Mean Corpuscular Hemoglobin 29.5, Mean Corpuscular Hemoglobin Concent 33.5, Red Cell Distribution Width 12.1, Platelet Count 212, Mean Platelet Volume 5.7L, Neutrophils (%) (Auto) 66.1, Lymphocytes ( %) (Auto) 23.3, Monocytes (%) (Auto) 7.7, Eosinophils (%) (Auto) 2.1, Basophils (%) (Auto) 0.8, Sodium Level 145, Potassium Level 3.3L, Chloride Level 108H, Carbon Dioxide Level 29, Anion Gap 8, Blood Urea Nitrogen 18, Creatinine 1.8H, Estimat Glomerular Filtration Rate 37.7, Glucose Level 92, Calcium Level 8.7 Height (Feet): 6 Height (Inches): 3.00 Weight (Pounds): 249 General Appearance: lethargic EENT: normal ENT inspection Neck: normal alignment Cardiovascular: normal peripheral pulses, normal rate, regular rhythm Respiratory/Chest: chest wall non-tender, lungs clear, normal breath sounds Abdomen: normal bowel sounds, non tender, soft Extremities: normal inspection Edema: no edema noted Arm (L), no edema noted Arm (R), no edema noted Leg (L), no edema noted Leg (R), no edema noted Pedal (L), no edema noted Pedal (R), no edema noted Generalized Neurologic: responsive, motor weakness Skin: normal pigmentation, warm/dry Law Borrego DO Jul 30, 2019 08:43
--- NOTE | 2019-07-30 09:03 | Cardiac Electrophysiology PN ---
Assessment/Plan Assessment/Plan 1. Newly diagnosed atrial fib. Will DW Dr. Brown re VALERIA and DCCV. Rate OK on Coreg 25 bid Start Eliquis when OK with ENT 2. HTN On Coreg and Norvasc 5 bid and Lasix 80 daily 3. Syncope R/O SSS in view of atrial fib 4. CKD Cr 1.[address] Hong Subjective Subjective Remained in atrial fib with controlled rate. Eager to go home. Objective Last 24 Hour Vital Signs Date Time Temp Pulse Resp B/P (MAP) Pulse Ox O2 Delivery O2 Flow Rate FiO2 07/30/19 08:15 Room Air 07/30/19 04:00 57 07/30/19 00:00 52 07/29/19 21:00 Room Air 07/29/19 20:55 61 127/86 07/29/19 20:54 61 127/86 07/29/19 20:00 99.0 61 18 127/86 (100) 96 07/29/19 20:00 61 07/29/19 16:06 70 07/29/19 16:00 97.9 62 18 127/81 (96) 97 07/29/19 15:46 98.2 07/29/19 12:00 98.2 70 20 124/79 (94) 96 07/29/19 11:51 66 07/29/19 09:20 71 131/87 07/29/19 09:20 71 131/87 Intake and Output 07/29/19 07/30/19 19:00 07:00 Intake Total 600 ml Output Total 1150 ml 800 ml Balance -550 ml -800 ml Intake Oral 600 ml Output Urine Total 1150 ml 800 ml # Voids 7 Laboratory Tests Test 07/29/19 09:00 07/30/19 05:27 Troponin I 0.006 ng/mL (0.000-0.056) Thyroid Stimulating Hormone (TSH) 3.469 uiU/mL (0.358-3.740) Free Thyroxine 1.04 NG/DL (0.76-1.46) Free Triiodothyronine 3.3 pg/mL (2.3-4.2) White Blood Count 7.5 K/UL (4.8-10.8) Red Blood Count 4.69 M/UL (4.70-6.10) L Hemoglobin 13.8 G/DL (14.2-18.0) L Hematocrit 41.3 % (42.0-52.0) L Mean Corpuscular Volume 88 FL (80-99) Mean Corpuscular Hemoglobin 29.5 PG (27.0-31.0) Mean Corpuscular Hemoglobin Concent 33.5 G/DL (32.0-36.0) Red Cell Distribution Width 12.1 % (11.6-14.8) Platelet Count 212 K/UL (150-450) Mean Platelet Volume 5.7 FL (6.5-10.1) L Neutrophils (%) (Auto) 66.1 % (45.0-75.0) Lymphocytes (%) (Auto) 23.3 % (20.0-45.0) Monocytes (%) (Auto) 7.7 % (1.0-10.0) Eosinophils (%) (Auto) 2.1 % (0.0-3.0) Basophils (%) (Auto) 0.8 % (0.0-2.0) Sodium Level 145 MMOL/L (136-145) Potassium Level 3.3 MMOL/L (3.5-5.1) L Chloride Level 108 MMOL/L (98-107) H Carbon Dioxide Level 29 MMOL/L (21-32) Anion Gap 8 mmol/L (5-15) Blood Urea Nitrogen 18 mg/dL (7-18) Creatinine 1.8 MG/DL (0.55-1.30) H Estimat Glomerular Filtration Rate 37.7 mL/min (>60) Glucose Level 92 MG/DL (74-106) Calcium Level 8.7 MG/DL (8.5-10.1) Objective HEENT: No JVD LUNGS: Clear CVS: Irregular S1 and S2 no murmur ABDOMEN: Soft EXT: No edema Miguel Angel Moura MD Jul 30, 2019 09:03
[2019-07-30] MEDS: Furosemide 80mg tab ORAL SCH (09:05)
[2019-07-30] MEDS: Ciprofloxacin 500mg tab ORAL SCH (09:05)
[2019-07-30] MEDS: Venlafaxine XR 150mg cap ORAL SCH (09:05)
[2019-07-30] MEDS: Carvedilol 25mg Tab ORAL SCH (09:07)
[2019-07-30] MEDS: Bacitracin Oint UD TOPIC SCH ×2 (09:08→17:03)
[2019-07-30] MEDS: Cortisporin OTIC Susp 10ml RIGHT EAR SCH ×2 (09:08→17:03)
--- NOTE | 2019-07-30 09:18 | NUR ---
CASE MANAGEMENT:REVIEW 07/30/19 SI: NEWLY DIAGNOSED AFIB 99.0 73 18 146/93 96% ON RA K-3.3 CR+1.8 IS: K-DUR 40MEQ PO X1 CIPRO PO Q12 NORVASC PO Q12 EFFEXOR PO QD COREG PO Q12 LASIX PO QD IVF@60/HR IV MORPHINE Q4HRS PRN : TELEMETRY STATUS DCP: PATIENT IS FROM HOME PLAN: VALERIA AND DCCV
[2019-07-30 09:35] VITALS: BP 146/93
--- NOTE | 2019-07-30 11:54 | Consultation ---
DATE OF CONSULTATION: 07/29/2019 NEPHROLOGY CONSULTATION CONSULTING PHYSICIAN: Collins Burr M.D. REFERRING PHYSICIAN: Law Borrego D.O. REASON FOR CONSULTATION: Renal failure. HISTORY OF PRESENT ILLNESS: The patient is a 68-year-old white male, who is known to me from followup in my office for the past few years. The patient has a history of CKD. His last serum creatinine was 1.6. He was also found to have renal cancer after ordered ultrasound of the kidneys, eventually the patient had a partial nephrectomy. He was admitted after an episode of syncope. He was feeling dizzy recently and he also had right ear infection. His serum creatinine initially was 2.0 and today is 1.9. PAST MEDICAL HISTORY: Includes history of HIV, reported history of pneumonia, hypertension. MEDICATIONS: Reviewed in the EMR. SOCIAL HISTORY: No history of smoking or alcohol abuse. ALLERGIES: No known drug allergies. REVIEW OF SYSTEMS: Noncontributory except what was mentioned. PHYSICAL EXAMINATION: GENERAL: The patient is a 68-year-old male, in no acute distress. VITAL SIGNS: Blood pressure 124/79, pulse 70, respirations 20, and temperature 98.2. HEENT: Harmony conjunctivae. Anicteric sclerae. Right ear, there are some stitches with some hematoma around it. NECK: Supple. LUNGS: Clear to auscultation. HEART: S1, S2 without murmurs or rubs. ABDOMEN: Soft and nontender. EXTREMITIES: No cyanosis or edema. LABORATORY FINDINGS: CBC shows a WBC of 9300, hematocrit is 42.8, hemoglobin 14.5, platelets 223,000. Chemistry panel shows a serum sodium , potassium 3.7, chloride 109, CO2 29, BUN 20, creatinine 1.9. Blood sugar is 113. Uric acid 7.8. UA is negative. ASSESSMENT: This is a 68-year-old white male with chronic kidney disease. His recent serum creatinine in the office was 1.6. He is now admitted with slightly higher serum creatinine but not much higher than outpatient labs. He may have some acute renal failure as result of volume depletion or even acute tubular necrosis. PLAN: Keep the patient on IV hydration until he is discharged. Labs will be followed. Further recommendations will be given. This case was discussed with Dr. Borrego. Collins Burr M.D. DR: Abigail JOB#: [id number] CC:
--- NOTE | 2019-07-30 11:55 | Consultation ---
DATE OF CONSULTATION: 07/29/2019 CARDIAC ELECTROPHYSIOLOGY CONSULTATION CONSULTING PHYSICIAN: Miguel Angel Moura M.D. REFERRING PHYSICIAN: Law Borrego D.O. REASON FOR CONSULTATION: Newly diagnosed atrial fibrillation and syncope. HISTORY OF PRESENT ILLNESS: The patient is a 68-year-old gentleman with history of hypertension, renal failure, status post nephrectomy in 2017 at [facility] for right upper lobe renal mass for malignancy. The patient has HIV, but undetectable viral load. under Cardiology care of Dr. Everett Brown. The patient came to the emergency room. As he got off the bed and then he fell on his right side. He is not sure whether he passed out or not. Denies room spinning or vertigo-like symptoms. The patient had laceration of the right ear. The patient was evaluated by Chucky, for repair of the complex laceration of the right ear was 5 cm. The patient also was noted to be in atrial fibrillation with controlled ventricular response of 74 that is newly diagnosed. The patient denies any prior myocardial infarction or congestive heart failure. has been treated for hypertension. REVIEW OF SYSTEMS: Review of systems was negative other than what was mentioned in the history of present illness. PAST MEDICAL HISTORY: As mentioned above. FAMILY HISTORY: Noncontributory. SOCIAL HISTORY: He lives at home. Does not smoke or drink alcohol. PHYSICAL EXAMINATION: VITAL SIGNS: Blood pressure 132/78, pulse is 70, respirations 18, and he is afebrile. HEAD AND NECK: Showed no JVD or carotid bruits. His right ear has suture. LUNGS: Clear. CARDIOVASCULAR: Irregular S1, S2 with no gallop or murmur. ABDOMEN: Soft and nontender. EXTREMITIES: No pitting edema. LABORATORY AND DIAGNOSTIC DATA: His EKG showed atrial fibrillation with nonspecific ST-T wave abnormalities. His laboratories show white count 9.2, hemoglobin 14.5, hematocrit 42.8, and platelet count of 223. Sodium 146, potassium 3.7, BUN of 20, creatinine 1.9, and glucose of 113. Troponin negative x3. BNP is 829. ASSESSMENT AND PLAN: 1. Atrial fibrillation. This is newly diagnosed. The rate is controlled on Coreg 25 mg b.i.d., but the patient is not on anticoagulation. I discussed the case with Dr. Bronw and the patient's primary manager produce, who states that this is newly diagnosed. The patient is on anticoagulation. We will hold off until the right ear incision is healed. 2. Hypertension. The patient is on amlodipine 5 mg b.i.d., Coreg 25 mg b.i.d., and Lasix 80 mg daily. 3. Syncope could have been due to tachy-jocelynn or sick sinus syndrome in view of paroxysmal atrial fibrillation. We will watch the patient on telemetry. 4. HIV on anti-retroviral therapy with undetectable viral load per the patient. 5. Renal failure with history of nephrectomy with further evaluation by Nephrology. Thank you very much for allowing me to participate in the care of this patient. Please do not hesitate to contact me for any questions regarding my evaluation. The case was discussed with Dr. Brown as well. Miguel Angel Moura M.D. DR: CAITLYN JOB#: [id number] CC:
--- NOTE | 2019-07-30 11:56 | NUR ---
*-* INSURANCE *-* ALL AVAILABLE CLINICALS HAVE BEEN FAXED TO: [facility] NCM: DEVAN Leos; [phone] F: [phone] Addendum: 07/30/19 at 1158 by DESIREE ADAMES TRIED CALLING NCM: [facility] FOR NCM:SUBHA TO CALL ME AND CONFIRM SHE HAS BEEN RECEIVING CLINICALS.
--- NOTE | 2019-07-30 12:00 | History and Physical Report ---
DATE AND TIME SEEN: 07/29/2019 at 2 p.m. CONSULTANTS: 1. Dr. Locke. 2. . 3. David Liu M.D. 4. Everett Brown M.D. CHIEF COMPLAINT: Syncope, head trauma, and AFib. BRIEF HISTORY: This is a 68-year-old male, who lives at home with history of HIV and renal insufficiency. Apparently, he had a syncopal episode. He fell down and passed out. No chest pain. No shortness of breath. No nausea, vomiting, or diarrhea. He struck his right ear and lacerated. The patient came to [facility], diagnosed with the above. Ear was repaired by Dr. Locke, ENT. The patient admitted to telemetry for further care. Currently, calm, in bed. No complaint. REVIEW OF SYSTEMS: No chest pain. No shortness of breath. No nausea, vomiting, or diarrhea. PAST MEDICAL HISTORY: Includes HIV, hypertension, and renal cancer. PAST SURGICAL HISTORY: Left nephrectomy. ALLERGIES: Denies. MEDICATIONS: Include Abilify, bacitracin, Cipro, amlodipine, loperamide, Zanaflex, carvedilol, furosemide, and morphine sulfate. SOCIAL HISTORY: Positive smoking. No alcohol. No intravenous drug abuse. FAMILY HISTORY: Noncontributory. PHYSICAL EXAMINATION: GENERAL: Calm in bed, oriented x3, in no acute distress. VITAL SIGNS: Show temperature is 98 degrees, pulse 78, respirations 20, and blood pressure 124/79. CARDIOVASCULAR: No murmurs. LUNGS: Poor air exchange. ABDOMEN: Bowel sounds distant. EXTREMITIES: No cyanosis or edema. SKIN: Right ear wound clean and dry. NEUROLOGIC: The patient moves all extremities, slightly weak. LABORATORY AND DIAGNOSTIC DATA: Labs at this time show CBC is normal. BMP shows sodium 146, chloride 109, BUN and creatinine 20/1.9. Glucose 113. Troponin 0.006. Albumin 3.1. Urinalysis is negative. ASSESSMENT: 1. Syncope. 2. Atrial fibrillation. 3. Head trauma. 4. Right ear laceration. 5. Renal insufficiency. 6. Human immunodeficiency virus. 7. Malnutrition. 8. Hypertension. PLAN: 1. Blood pressure control. 2. Cardiology followup. 3. Nephrology followup. 4. Wound care. 5. Antibiotics as ordered. 6. PT and dietary evaluation. 7. CBC and BMP in the morning. Law Borrego D.O. DR: DOMINIQUE JOB#: [id number] CC:
--- NOTE | 2019-07-30 12:00 | Consultation ---
DATE OF CONSULTATION: 07/29/2019 CARDIOLOGY CONSULTATION CONSULTING PHYSICIAN: Everett Brown M.D. REFERRING PHYSICIAN: Law Borrego D.O. REASON FOR REFERRAL: Atrial fibrillation. HISTORY OF PRESENT ILLNESS: This is a middle-aged gentleman, who is known to me from office visit. The patient apparently got out of bed yesterday morning, lost balance and fell on the right side towards the window ledge, does recall the actual fall, does not think that he lost consciousness and eventually came to the emergency room at [facility] yesterday, and he has been admitted. He was found to have extensive laceration had stitches placed and I was notified by Dr. Moura that the patient was admitted to the hospital with atrial fibrillation. He does not have any chest pain or pressure. There is no PND. No dyspnea on exertion. No orthopnea. He uses one pillow. There is usually no dizziness or lightheadedness. He states he has not been as active now he was previously. PAST MEDICAL HISTORY: Positive for erectile dysfunction, neuropathy, calcaneal fracture, depression, HIV, rectal squamous cell carcinoma, hypertension, anorexia, HSV infection, insomnia, long-term use of medications. He has had peripheral neuropathy, diastolic dysfunction, and malignant neoplasm of the right kidney, chronic renal insufficiency, history of bradycardia. MEDICATIONS: At home been acyclovir 100 mg twice a day, amlodipine 10 mg a day, Abilify 5 mg, Coreg 12.5 mg twice a day, Klonopin 1 mg daily, Tivicay, Descovy, enalapril 20 mg twice daily, Lasix 80 mg daily, hydrocodone, [place] as needed, omeprazole 40 mg daily, Crestor 5 mg at bedtime, venlafaxine ER 150 mg daily. ALLERGIES: He is not allergic to any medications. SOCIAL HISTORY: Never smoked. Mild to moderate alcohol use. Marijuana use occasionally, unfortunately he is on disability. REVIEW OF SYSTEMS: GASTROINTESTINAL: Negative. GENITOURINARY: Negative. PULMONARY: Negative. CONSTITUTIONAL: Negative. NEUROLOGIC: Negative. PHYSICAL EXAMINATION: GENERAL: Shows to be middle-aged gentleman, in no respiratory distress. HEENT: Unremarkable. NECK: Supple. No jugular venous distention. He has got multiple sutures on the right auricle. There is swelling of the right side of the neck as well. LUNGS: Clear to auscultation and percussion. CARDIAC: Irregularly irregular. Not tachycardic. Not bradycardic. No heaves or thrills. ABDOMEN: Soft, nontender. Positive bowel sounds. EXTREMITIES: There is no clubbing, cyanosis, or edema. NEUROLOGICAL: He is awake, alert, and responsive. LABORATORY AND DIAGNOSTIC DATA: White count 9.3, hemoglobin 14.5, and platelet count 223. Sodium is 146, potassium 3.7, chloride 109, bicarb 29, BUN 20, creatinine 1.9, and glucose of 113. Three sets of cardiac enzymes are all negative. ProBNP at time of admission was only 829. TSH 0.49 and thyroid function tests were normal. Urinalysis fairly unremarkable. He had a CT scan of his head that showed no evidence of acute intracranial hemorrhage, mass effects, cortical edema. He had a chest x-ray as well that showed no evidence of acute cardiopulmonary disease process. Telemetry data shows atrial fibrillation, ventricular response appears to be controlled. In fact the EKG performed by the paramedics also showed atrial fibrillation, ventricular response, rate controlled. An echocardiogram has been performed, ejection fraction reportedly 60% to 65%, dilated IVC suggesting increased RA pressure. ASSESSMENT AND PLAN: 1. History of recent fall without loss of consciousness. 2. Atrial fibrillation, duration unknown. 3. History of HIV. 4. History of renal mass status post partial nephrectomy. 5. Peripheral neuropathy. 6. Diastolic dysfunction. 7. Chronic renal insufficiency. This patient was seen in cardiac consultation. The patient has already been seen by Dr. Moura. He has had sutured performed on his right auricle extensively approximately 25 sutures had been placed. He does not have reported history of loss of consciousness. He does remember the actual fall completely and therefore it is unlikely that he actually had syncope I suspect that he has may be even a nonsyncopal fall possibly related to the ear infection. Ear, Nose, and Throat doctor thought that he may actually have had an infection in his ears. Nevertheless, his heart rate has been controlled. It is not clear how long he has been in atrial fibrillation, his [id number] score estimated is 2. Recommendations of oral anticoagulation was 2.2% risk of a stroke however because of his recent extensive damage and sutures of his right ear hesitant to start that until clearance is obtained from the Ear, Nose, and Throat doctor. His usual medication should be otherwise continued. His blood pressure has been adequate here although his medications have not been to the point that he has been previously receiving at home. He will require reinstitution of some of his medications at some point. Anticoagulation will be withheld until seen by and followed up by ENT doctor. Everett Brown M.D. DR: Minoo JOB#: [id number] CC:
[2019-07-30 12:18] VITALS: BP 129/87
--- NOTE | 2019-07-30 12:25 | NUR ---
NURSE NOTES: RN called Dr. Locke per Dr. Moura request. Dr. Locke stated okay for pt to take Eliquis. Notified Dr. Moura and asked for order so pt can continue outpt
[2019-07-30] MEDS ORDERED: CIPROFLOXA500 MG/5 M PO (12:31)
[2019-07-30] MEDS ORDERED: NEOMYCIN-POLYMY10 ML OT (12:35)
[2019-07-30] MEDS ORDERED: BACITRACIN1 EACH TOPIC (12:37)
[2019-07-30] MEDS: Morphine Sulfate 2mg/ml Inj(IV/IM USE ONLY) IVP PRN (12:43)
[2019-07-30] MEDS ORDERED: Eliquis 5mg tablet ORAL SCH (13:30)
--- NOTE | 2019-07-30 15:12 | NUR ---
NURSE NOTES: Asked Dr. Borrego about DC order as pt is cleared by Dr. Moody, Dr. Brown, and Gracie Burr
--- NOTE | 2019-07-30 15:24 | NUR ---
NURSE NOTES: Notified Dr. Chen of [place] and asked for her to call all abx, ear drops, and bacitracin to pt's pharmacy.
[2019-07-30] MEDS ORDERED: ELIQUIS5 MG PO (15:58)
[2019-07-30] MEDS ORDERED: ABILIFY10 MG ORAL (15:59)
--- NOTE | 2019-07-30 16:23 | Infectious Diseases Prog Note ---
Assessment/Plan Assessment/Plan Assessment: R ear laceration c/w otitis externa -07/28 SP Complex laceration repair by ENT Syncopal episode -CT head: No evidence of acute intracranial hemorrhage, mass effect or cortical edema. MRI may be obtained for more sensitive evaluation as clinically indicated. New onset Afib Afebrile No leukocytosis -CXR: no acute process HTN hx of pneumonia HIV MDD Plan: -Continue PO Ciprofloxacin #3/7 and ear drops per ENT -f/u cx -Monitor CBC/CMP, temperatures -ENT f/u -wound care per hospital protocol -Cards eval -Continue [place] and [place] Thank you for this consultation. Will continue to follow along with you. Discussed with RN Subjective Allergies: Coded Allergies: No Known Allergies (Unverified , 01/16/13) Subjective afebrile no leukocytosis Objective Vital Signs Last 24 Hour Vital Signs Date Time Temp Pulse Resp B/P (MAP) Pulse Ox O2 Delivery O2 Flow Rate FiO2 07/30/19 13:13 97.2 07/30/19 12:18 97.2 62 18 129/87 (101) 98 07/30/19 11:36 59 07/30/19 09:35 97.7 73 18 146/93 (110) 98 07/30/19 09:08 73 146/93 07/30/19 09:07 73 146/93 07/30/19 08:20 62 07/30/19 08:15 Room Air 07/30/19 04:00 57 07/30/19 00:00 52 07/29/19 21:00 Room Air 07/29/19 20:55 61 127/86 07/29/19 20:54 61 127/86 07/29/19 20:00 99.0 61 18 127/86 (100) 96 07/29/19 20:00 61 Height (Feet): 6 Height (Inches): 3.00 Weight (Pounds): 249 Objective General Appearance: no apparent distress, alert Head: normocephalic ENT: hearing grossly normal, normal pharynx, no angioedema, normal voice, other - R ear laceration Neck: normal inspection, supple, no bony tend Respiratory: normal inspection Cardiovascular #1: normal inspection Gastrointestinal: normal inspection Genitourinary: no CVA tenderness Musculoskeletal: normal inspection Neurologic: alert, oriented x3, responsive, motor strength/tone normal, sensory intact, speech normal Skin: laceration -R ear lobe with sutures in place- Laboratory Tests Test 07/30/19 05:27 White Blood Count 7.5 K/UL (4.8-10.8) Red Blood Count 4.69 M/UL (4.70-6.10) L Hemoglobin 13.8 G/DL (14.2-18.0) L Hematocrit 41.3 % (42.0-52.0) L Mean Corpuscular Volume 88 FL (80-99) Mean Corpuscular Hemoglobin 29.5 PG (27.0-31.0) Mean Corpuscular Hemoglobin Concent 33.5 G/DL (32.0-36.0) Red Cell Distribution Width 12.1 % (11.6-14.8) Platelet Count 212 K/UL (150-450) Mean Platelet Volume 5.7 FL (6.5-10.1) L Neutrophils (%) (Auto) 66.1 % (45.0-75.0) Lymphocytes (%) (Auto) 23.3 % (20.0-45.0) Monocytes (%) (Auto) 7.7 % (1.0-10.0) Eosinophils (%) (Auto) 2.1 % (0.0-3.0) Basophils (%) (Auto) 0.8 % (0.0-2.0) Sodium Level 145 MMOL/L (136-145) Potassium Level 3.3 MMOL/L (3.5-5.1) L Chloride Level 108 MMOL/L (98-107) H Carbon Dioxide Level 29 MMOL/L (21-32) Anion Gap 8 mmol/L (5-15) Blood Urea Nitrogen 18 mg/dL (7-18) Creatinine 1.8 MG/DL (0.55-1.30) H Estimat Glomerular Filtration Rate 37.7 mL/min (>60) Glucose Level 92 MG/DL (74-106) Calcium Level 8.7 MG/DL (8.5-10.1) Current Medications Medications (Trade) Dose Ordered Sig/Bev Route PRN Reason Start Time Stop Time Status Last Admin Dose Admin Amlodipine Besylate (Norvasc) 5 mg Q12HR ORAL 07/29/19 09:00 08/28/19 08:59 07/30/19 09:08 Apixaban (Eliquis) 5 mg Q12HR ORAL 07/30/19 13:30 08/29/19 13:29 07/30/19 14:24 Aripiprazole (Abilify) 5 mg BEDTIME ORAL 07/29/19 21:00 08/28/19 08:59 07/29/19 20:53 Bacitracin (Bacitracin) 1 applic BID TOPIC 07/29/19 11:45 08/28/19 11:44 07/30/19 09:08 Carvedilol (Coreg) 25 mg Q12HR ORAL 07/28/19 21:00 08/27/19 20:59 07/30/19 09:07 Ciprofloxacin (Cipro 500mg tab) 500 mg EVERY 12 HOURS ORAL 07/29/19 11:15 08/05/19 11:14 07/30/19 09:05 Dextrose/Sodium Chloride 1,000 ml @ 60 mls/hr [id number] IV 07/28/19 20:00 08/27/19 19:59 07/29/19 11:39 Furosemide (Lasix) 80 mg DAILY ORAL 07/28/19 21:00 08/27/19 20:59 07/30/19 09:05 Loperamide HCl (Imodium) 2 mg Q8H PRN ORAL diarrhea 07/29/19 09:00 08/28/19 08:59 Morphine Sulfate (Morphine Sulfate) 2 mg Q4H PRN IVP PAIN 4-10 07/28/19 20:00 08/04/19 19:59 07/30/19 12:43 Neomycin/ Polymyxin/ Hydrocortisone (Neomycin/ Polymyxin/ Hydrocortisone Otic Susp) 4 drop BID RIGHT EAR 07/29/19 18:00 08/05/19 17:59 07/30/19 09:08 Venlafaxine HCl (Effexor-XR) 150 mg DAILY ORAL 07/29/19 09:00 08/28/19 08:59 07/30/19 09:05 Sonja Chen M.D. Jul 30, 2019 16:23
[2019-07-30 16:38] VITALS: BP 120/87
--- NOTE | 2019-08-01 11:32 | Discharge Summary ---
Discharge Summary Discharge Summary _ DATE OF ADMISSION: 07/28/2019 DATE OF DISCHARGE: 07/30/2019 DISCHARGED BY: Dr. Law Borrego CONSULTANTS: Dr. Sonja Locke BRIEF HOSPITAL COURSE: Patient is a 68-year-old male, who presented to ED for evaluation of a syncopal episode. Patient had a syncopal episode where he fell and hit his head. He sustained laceration to the right ear. Patient drove to an urgent care where they did an EKG and saw he was in atrial fibrillation. He was brought to the ED for further evaluation. Patient denies any photophobia or blurry vision. Denies any nausea or vomiting. Denies chest pain. He does not take any blood thinners. He has medical history significant for hypertension, pneumonia and HIV. On evaluation at the ED, vital signs were stable. Blood work did not show any leukocytosis. Hemoglobin and hematocrit were stable. BUN was elevated to 24 and creatinine 2.0. Urinalysis negative. Chest x-ray did not show any acute process. EKG showed atrial fibrillation with no acute ischemic changes. CT of the brain was unremarkable. He was admitted for evaluation of syncope. ENT was consulted. Patient had right through and through laceration below and a skin only laceration pretragally and in the samira cavum. Laceration was repaired. He tolerated procedure well. He was given instructions on dry ear precautions. He was given antibiotics for ear infection. To follow-up in 5 days for suture removal. ID was consulted. Patient was given p.o. ciprofloxacin and ear antimicrobial. Patient had newly diagnosed atrial fibrillation. He was given Coreg 25 mg twice daily. Hold off on anticoagulation until the right ear incision fully healed. He was given 5 mg of Norvasc twice daily and Lasix 80 mg daily for blood pressure. Echocardiogram showed ejection fraction 60 to 65%, dilated IVC suggesting increased RA pressure. Patient reported history of loss of consciousness. He remembers that for 4 completely and therefore unlikely that he actually had a syncopal episode. Patient has history of CKD. Last serum creatinine was 1.6. He was also found to have renal cancer and eventually patient had partial nephrectomy. Kidney function was stable. He was given IV hydration. KIARA vasc score is 2. He was eventually started on Eliquis. Patient was cleared for discharge home. To follow-up with ENT and engineering associate as outpatient. FINAL DIAGNOSES: Right ear laceration from fall status post complex laceration repair Possible syncopal episode New onset atrial fibrillation on anticoagulation Hypertension HIV MDD Peripheral neuropathy Diastolic dysfunction History of renal mass status post partial nephrectomy Acute kidney injury Chronic kidney disease DISPOSITION: Patient was discharged home. DISCHARGE MEDICATIONS: Refer to Discharge Medication List. DISCHARGE INSTRUCTIONS: Follow-up in a week. I have been assigned to complete a discharge summary on this account, I was not involved with the patient's management.--KARI Franco Jacqueline Robles NP Aug 01, 2019 11:32
--- NOTE | 2019-08-02 13:23 | Cardiology Report ---
APPROVED REPORT EXAM: Two-dimensional and M-mode echocardiogram with Doppler and color Doppler. INDICATION Atrial Fibrillation M-Mode DIMENSIONS IVSd1.4 (0.7-1.1cm)Left Atrium (MM)4.3 (1.6-4.0cm) LVDd5.1 (3.5-5.6cm)Aortic Root3.3 (2.0-3.7cm) PWd1.4 (0.7-1.1cm)Aortic Cusp Exc.1.9 (1.5-2.0cm) LVDs3.1 (2.5-4.0cm) PWs2.1 cm Normal left ventricular chamber size, systolic function and wall motion. Left ventricular ejection fraction estimated to be 60-65 %. Anterior Echo-free space, may be due to pericardial fat or effusion. Bi-atrial enlargement. Right ventricular chamber size is at upper limits of normal. Focal aortic valve sclerosis with adequate cusp excursion. Thickened mitral valve leaflets with normal excursion. Mitral annulus and aortic root calcification. Pulmonic valve not well visualized. Normal tricuspid valve structure. IVC dilated at 2.7cm without physiologic collapse suggestive of increased RA pressure. Subcostal views not obtainable. A color flow and spectral Doppler study was performed and revealed: Trace mitral regurgitation. Left ventricular diastolic function not determined due to arrhythmia. Mild tricuspid regurgitation. Tricuspid systolic velocities suggests peak right ventricular systolic pressure of 32 mmHg.
--- NOTE | 2019-08-02 13:34 | NUR ---
*-* INSURANCE *-* DISCHARGE SUMMARY [facility] BE[facility] DEVAN Leos; [phone] F: [phone]
--- NOTE | 2019-08-02 13:38 | Cardiology Report ---
APPROVED REPORT EKG Measurement Heart [id number] Atrial fibrillation Left axis deviation Pulmonary disease pattern Abnormal ECG
== END 2019-07-30 17:45 | disposition home or self-care (01) | DRG 309 ==
LOC: EDBD 13:41 → EMR 14:10 → MERGE 14:10 → 2E 16:07 → EDBEDREQ 16:52
PROC: 0HQ2XZZ Repair Right Ear Skin, External Approach (ICD-10-PCS; principal; 2019-07-28)
DX: I48.91 Unspecified atrial fibrillation (principal); E46 Unspecified protein-calorie malnutrition; N17.9 Acute kidney failure, unspecified; B20 Human immunodeficiency virus [HIV] disease; R55 Syncope and collapse; W19.XXXA Unspecified fall, initial encounter; Z85.528 Personal history of other malignant neoplasm of kidney; F32.9 Major depressive disorder, single episode, unspecified; G62.9 Polyneuropathy, unspecified; I12.9 Hypertensive chronic kidney disease with stage 1 through stage 4 chronic kidney disease, or unspecified chronic kidney disease; N18.9 Chronic kidney disease, unspecified; H60.91 Unspecified otitis externa, right ear
CPT/HCPCS: 36415; 70450; 71045; 80048; 80053; 81003; 82550; 82553; 83735; 83880; 84100; 84439; 84443; 84481; 84484; 84550; 85025; 93005; 93306; 96361; 96374; 99285; J7030; J8499